=== PATIENT | male | born 1965 | race Caucasian/White ===

== ENCOUNTER → 2017-11-06 | Outpatient (REF) | LOC: AUD 08:30 | PROVIDERS: ATTEND Family Medicine | DX: Z01.10 Encounter for examination of ears and hearing without abnormal findings (principal) | CPT/HCPCS: 92552 ==

== ENCOUNTER 2018-12-29 14:37 | Emergency (ER) | payer OTHER ==
--- NOTE | 2018-12-29 14:39 | ER Report ---
History and Physical Time Seen By MD: 14:39 Hx. of Stated Complaint: EXPOSURE TO NEEDLE WITH PT IV HPI/ROS CHIEF COMPLAINT: [] HISTORY OF PRESENT ILLNESS: [must have 4 elements] REVIEW OF SYSTEMS: Constitutional: [No fever, no chills.] Eyes: [No discharge.] ENT: [No sore throat.] Cardiovascular: [No chest pain, no palpitations.] Respiratory: [No cough, no shortness of breath.] Gastrointestinal: [No abdominal pain, no vomiting.] Genitourinary: [No hematuria.] Musculoskeletal: [No back pain.] Skin: [No rashes.] Neurological: [No headache.] Allergies: Coded Allergies: No Known Drug Allergies (Unverified , 07/10/16) Home Meds No Active Prescriptions or Reported Meds Physical Exam General Appearance: [The patient is alert, has no immediate need for airway protection and no signs of toxicity.] [ ] [Eyes:] [Pupils equal and round no pallor or injection.] [ENT, Mouth:] [Mucous membranes are moist.] Respiratory: [There are no retractions, lungs are clear to auscultation.] Cardiovascular: [Regular rate and rhythm.] [ ] Gastrointestinal: [Abdomen is soft and non tender, no masses, bowel sounds normal.] [Neurological:] [ ] [Skin:] [Warm and dry, no rashes.] [Musculoskeletal:] [Neck is supple non tender.] [Extremities are nontender, nonswollen and have full range of motion.] [ ] [DIFFERENTIAL DIAGNOSIS: After history and physical exam differential diagnosis was considered for] [ ] Depart Departure Condition: Stable Disposition: HOME OR SELF-CARE Referrals: NAFISA METZ MD (PCP) New Scripts No Active Prescriptions or Reported Meds BELINDA GUZMAN DO Dec 29, 2018 14:39
--- NOTE | 2018-12-29 14:53 | ER Report ---
History and Physical Time Seen By MD: 14:48 Hx. of Stated Complaint: EXPOSURE TO NEEDLE WITH PT IV HPI/ROS CHIEF COMPLAINT: Needlestick HISTORY OF PRESENT ILLNESS: This is a 53-year-old male presents to the emergency department for a needlestick. Patient was starting an IV on the patient was stuck by the IV after attempting an IV started. Low probability of transmission however we will go ahead with the blood and body fluid exposure panel. Allergies: Coded Allergies: No Known Drug Allergies (Unverified , 07/10/16) Home Meds No Active Prescriptions or Reported Meds Past Medical/Surgical History The patient has a past medical surgical history of headaches, back pain. Reviewed Nurses Notes: Yes Physical Exam General appearance: Alert no distress. Respiratory: Chest is non tender, lungs are clear to auscultation. Cardiac: Regular rate and rhythm. DIFFERENTIAL DIAGNOSIS: After history and physical exam differential diagnosis was considered for blood and body fluid exposure. Medical Decision Making Data Points Laboratory Hematology Test 12/29/18 14:44 Hepatitis B Surface Antigen Negative (NEGATIVE) Hepatitis B Surface Antibody Positive Hepatitis C Antibody Negative (NEGATIVE) HIV (1&2) Antibody Negative (NEGATIVE) Chemistry Test 12/29/18 14:44 Hepatitis B Surface Antigen Negative (NEGATIVE) Hepatitis B Surface Antibody Positive Hepatitis C Antibody Negative (NEGATIVE) HIV (1&2) Antibody Negative (NEGATIVE) ED Course/Re-evaluation ED Course Patient's labs were obtained, sent to the laboratory, patient will be contacted with the results. The patient also thoroughly cleansed the exposed area. I did counseled the patient that the probability of transmission is very low. Decision to Disposition Date: Dec 29, 2018 Decision to Disposition Time: 14:51 Depart Departure Impression: Primary Impression: Exposure to blood or body fluid Condition: Improved Disposition: HOME OR SELF-CARE Referrals: NAFISA METZ MD (PCP) New Scripts No Active Prescriptions or Reported Meds Additional Instructions: You will be contacted with the results. ROSEMARY OTT SHOP STEWARD-BC Dec 29, 2018 14:53
== END 2018-12-29 14:50 | disposition home or self-care (01) ==
LOC: ER 14:41
DX: Z77.21 Contact with and (suspected) exposure to potentially hazardous body fluids (principal)
CPT/HCPCS: 36415; 86703; 86706; 86803; 87340; 99282

== ENCOUNTER → 2019-02-04 | Outpatient (CLI) | payer OTHER | LOC: LAB 08:08 | PROVIDERS: ATTEND Emergency Medicine | DX: Z77.21 Contact with and (suspected) exposure to potentially hazardous body fluids (principal) | CPT/HCPCS: 36415; 86703 ==

== ENCOUNTER → 2019-05-02 | Outpatient (CLI) | payer OTHER | LOC: LAB 15:33 | PROVIDERS: ATTEND Emergency Medicine | DX: Z77.21 Contact with and (suspected) exposure to potentially hazardous body fluids (principal) | CPT/HCPCS: 36415; 86703 ==